=== PATIENT | male | born 1960 | race Caucasian/White ===

== ENCOUNTER 2021-08-06 07:27 | Emergency (ER) | payer MEDICAID, SELFPAY ==
--- NOTE | ~2021-08-06 | XR_ITS ---
EXAMINATION: XR KNEE, LEFT CLINICAL INFORMATION: Injury COMPARISON: None TECHNIQUE: Four views of the left knee. FINDINGS: A small joint effusion is present. Mild degenerative changes are present with narrowing in the medial compartment. No acute fractures are seen. No abnormal soft tissue calcification. XR/XR knee LT 4V IMPRESSION: Small knee joint effusion and mild narrowing of the medial compartment.
[2021-08-06 07:40] VITALS: BP 161/92; PULSE 93; RESP 16; TEMP 36.6; O2SAT 98; BMI 26.9
--- NOTE | 2021-08-06 08:11 | ED.GENADULT ---
HPI - General Adult General Chief complaint: Extremity Injury, Lower Stated complaint: left knee pain Time Seen by Provider: 08/06/21 08:11 Source: patient Mode of arrival: ambulatory Limitations: no limitations History of Present Illness HPI narrative: Patient is a 60 year old male presenting to the emergency department today with left knee pain. Patient states that he stepped down and twisted his left knee after missing a step yesterday. Patient denies hitting his head with the incident or any loss of consciousness. Patient denies any dizziness, lightheadedness, abdominal pain, nausea, vomiting, fever, chills, blurry vision, double vision, loss of vision, chest pain, difficulty breathing, shortness of breath, back pain, night sweats, pain with urination, increased urinary frequency, increased urinary urgency, blood in his urine or stool, syncope or a near syncopal episode, bowel incontinence, bladder incontinence, bowel retention, bladder retention, or any other complaints at this time. Onset (ago): day(s) (1) Location: left and lower extremity Radiation: non-radiation Severity: mild Severity scale (1-10): 1 Quality: dull Pain Consistency: constant Relieving factors: none Exacerbating factors: none Associated symptoms: denies other symptoms Treatments prior to arrival: none Related Data Allergies Allergy/AdvReac Type Severity Reaction Status Date / Time No Known Allergies Allergy Unverified 10/25/19 16:43 Review of Systems Constitutional: Constitutional: Reports no additional constitutional complaints, Denies chills, Denies fever(s) and Denies night sweats Eyes: Eyes: Reports no additional eye complaints, Denies blurry vision, Denies change in vision, Denies diplopia, Denies eye discharge, Denies loss of vision and Denies eye pain ENT: Denies dizziness Cardiovascular: Cardiovascular: Reports no additional cardiovascular complaints, Denies chest pain, Denies lightheadedness, Denies Loss of Consciousness and Denies dyspnea Respiratory: Respiratory: Reports no additional respiratory complaints and Denies dyspnea Gastrointestinal: Gastrointestinal: Reports no additional gastrointestinal complaints, Denies abdominal pain, Denies melena, Denies hematochezia, Denies change in bowel habits and Denies change in stool character Genitourinary: Genitourinary: Reports no additional male genitourinary complaints, Denies hematuria, Denies oliguria, Denies difficulty urinating, Denies dysuria, Denies urinary frequency, Denies urinary hesitancy, Denies urinary incontinence and Denies urinary urgency Musculoskeletal: Musculoskeletal: Reports no additional musculoskeletal complaints, Denies numbness and Denies tingling Comments: left knee pain Neurologic: Denies dizziness, Denies loss of vision, Denies numbness and Denies tingling Psychiatric: Psychiatric: Reports no additional psychiatric complaints Endocrine: Endocrine: Reports no additional endocrine complaints Hematologic/Lymphatic: Hematologic/Lymphatic: Reports no additional hematologic/lymphatic complaints Allergic/Immunologic: Allergic/Immunologic: Reports no additional allergic/immunologic complaints [facility] Past Medical History Attestation statement: The following information was validated with the patient. Source: old records reviewed Social History Social History Advance Directives: No Advance Directives Information Provided: Yes Physical Exam ED Vital Signs: Vital Signs - 24 hr 08/06/21 07:40 Temperature 97.8 F Pulse Rate 93 Respiratory Rate 16 Blood Pressure 161/92 H Pulse Oximetry 98 Oxygen Delivery Method Room Air BMI result Body Mass Index 26.9 Const General: cooperative, no acute distress, alert and awake Nutritional Appearance: well nourished Orientation/consciousness: patient oriented x3 Limitations: no limitations HENMT Head: Yes normal to inspection and Yes atraumatic Ears: hearing grossly normal bilaterally and external ears normal General nose exam: Normal external nose present, no nasal discharge noted and no epistaxis Face and sinus: Yes normal facial exam, No abrasion and No laceration Mouth: Normal oral and palatal mucosa present, no drooling and no muffled voice Eyes General: appearance normal, both eyes and all related structures Periorbital: periorbital findings normal Eyelids: Yes eyelids normal Conjunctivae: conjunctivae normal Pupils: Equal, round and reactive pupils present EOM: EOMs intact bilaterally Neck Neck: Yes normal visual inspection, Yes full ROM and Yes no lymphadenopathy Chest Chest palpation & inspection: normal inspection of the chest Resp Effort & Inspection: normal respiratory effort and able to speak in complete sentences Auscultation: clear to auscultation bilaterally Cardio Rate: regular rate Rhythm: regular rhythm GI Inspection: Yes normal to inspection Neuro General: patient oriented x3 and moves all extremities Cranial nerves: Yes Equal, round and reactive pupils present Cognition (Neuro): normal cognition Motor exam (neuro): 5/5 motor strength present throughout Sensory Exam: Normal double simultaneous stimulation for sensation Coordination: [id number] test normal Extrem General: Yes normal to inspection, Yes full ROM and Yes capillary refill normal Psych Appearance: grossly normal Mental Status: mental status grossly normal Affect: normal affect Attitude: cooperative Thought process: Normal thought process present Thought content: Normal thought content present Insight: Good insight present (Psych) Procedures Orthopedic Splinting/Casting Injury #1: Side: left Lower Extremity Injury Location: knee Lower Extremity Immobilizer: knee immobilizer Other Orthopedic Equipment: crutches Medical Decision Making MDM Narrative Medical decision making narrative: Patient is a 60 year old male presenting to the emergency department today with left knee pain. Patient's physical exam was unremarkable. Patient's left knee x-ray showed a small knee join effusion and mild narrowing of the medial compartment but no acute fractures. I explained my physical exam findings as well as all test results to the patient. I answered all questions asked by the patient. Patient's knee was placed in an immobilizer and he was given crutches with crutch instructions. Patient's PMS was in tact prior to and after splint placement. I stressed the importance of the patient taking his medication as prescribed. I stressed the importance of the patient following up with his primary care provider and an orthopedic provider. I stressed the importance of the patient returning to the emergency department immediately if his symptoms were to worsen or if he were to develop any dizziness, shortness of breath, difficulty breathing, chest pain, blurry vision, loss of vision, nausea, vomiting, abdominal pain, fever, chills, back pain, or any other complaints. Patient verbalized agreement and understanding with this treatment plan and discharge. Differential Diagnosis Differential Diagnosis: Left knee pain, internal left knee injury Medical Records Medical records reviewed: Yes I reviewed the patient's medical records. Imaging Data Left knee x-ray: Attestation: I personally reviewed and interpreted this imaging study as follows: My impression: No acute ana process. Radiologist's impression: EXAMINATION: XR KNEE, LEFT CLINICAL INFORMATION: Injury? COMPARISON: None? TECHNIQUE: Four views of the left knee. FINDINGS: A small joint effusion is present. Mild degenerative changes are present with narrowing in the medial compartment. No acute fractures are seen.? No abnormal soft tissue calcification.? XR/XR knee LT 4V IMPRESSION: Small knee joint effusion and mild narrowing of the medial compartment. Dictated By: Parminder Jackson MD Signed By: Electronically signed by Parminder Jackson MD 08/06/21 2229 Discharge Plan Discharge Clinical Impression: Acute internal derangement of knee Patient Disposition: Home, Self-Care Instructions: ACL Injury (ED) Additional Instructions: Follow up with your primary care provider and an orthopedic provider. Return to the emergency department immediately if your symptoms worsen or if you develop any dizziness, shortness of breath, difficulty breathing, chest pain, blurry vision, loss of vision, nausea, vomiting, abdominal pain, fever, chills, back pain, or any other complaints. [place] [facility] [place] [facility] [place]Provider Group] (Call to establish and follow up with an orthopedic provider. ) Hali Cabezas MD [Primary Care Provider] - (Follow up with your primary care provider. ) Stand Alone Forms: Work/School Release Print Language: Stateless
== END 2021-08-06 10:02 | disposition home or self-care (01) ==
PROVIDERS: Emergency Provider Emergency Medicine; PCP Family Medicine
DX: M23.92 Unspecified internal derangement of left knee (principal); M25.462 Effusion, left knee; M25.562 Pain in left knee
CPT/HCPCS: 73564; 99283

== ENCOUNTER 2021-08-25 08:04 | Outpatient (REF) | payer MEDICAID, SELFPAY | END 2021-08-25 08:05 | disposition home or self-care (01) | LOC: HO.HOSX 08:04 | PROVIDERS: Visit Provider Physician Assistant | DX: Z13.89 Encounter for screening for other disorder (principal) ==

== ENCOUNTER 2021-12-31 10:25 | Emergency (ER) | payer MEDICAID, SELFPAY ==
--- NOTE | ~2021-12-31 | XR_ITS ---
EXAMINATION: XR CHEST, 2 VIEWS CLINICAL INFORMATION: Cough, chest pain COMPARISON: 05/03/2013 TECHNIQUE: PA and lateral views of the chest were obtained. FINDINGS: Fractured sternal wires are unchanged. Bilateral perihilar bronchial wall thickening is suspected. No consolidation, pneumothorax, or pleural effusion. Cardiac and mediastinal contours are normal. Pulmonary vasculature is unremarkable. Trachea is midline. Osseous structures are unremarkable. XR/XR chest 2V IMPRESSION: Bronchial wall thickening can be seen with a small airways process such as asthma or atypical/viral infection. No focal consolidation.
[2021-12-31 10:36] VITALS: BP 141/78; PULSE 84; RESP 18; TEMP 36.7; O2SAT 98; BMI 29.0
--- NOTE | 2021-12-31 10:40 | ECG_ITS ---
Test Reason : CHEST PAIN Blood Pressure : / mmHG Vent. Rate : 074 BPM Atrial Rate : 074 BPM P-R Int : 156 ms QRS Dur : 086 ms QT Int : 366 ms P-R-T Axes : 067 024 014 degrees QTc Int : 406 ms Sinus rhythm with marked sinus arrhythmia Right atrial enlargement Nonspecific ST abnormality Inferior leads Abnormal ECG No previous ECGs available Referred By: Samaria Carreno Electronically Signed By:TRICE SIMMONS MD
[2021-12-31 10:49] VITALS: BP 141/78; PULSE 84; RESP 18; TEMP 36.7; O2SAT 98
--- NOTE | 2021-12-31 10:50 | ED.CHESTPAIN ---
HPI - Chest Pain General Chief Complaint: Upper Respiratory Symptoms Stated Complaint: CP when coughing Time Seen by Provider: 12/31/21 10:40 Source: patient Mode of arrival: ambulatory Limitations: no limitations History of Present Illness HPI narrative: 61 yo male with history of HTN, HLD who is presenting to the ER for evaluation of upper sternal, nonradiating 2/10 chest pains that have been occurring with coughing. He states the pains are only when he is coughing and located in his upper chest. He states it is a slight ache. He denies any associated shortness of breath. He is not bringing up any phlegm when he coughs. He has been around his other family members who have been sick with similar symptoms. He denies any headache or body aches. No fever or chills. No nausea or vomiting. MD complaint: chest pain Onset (ago): day(s) (3) Timing of current episode: episodic Onset: other (Only when coughing) Pain location: substernal Pain radiation: none Severity: mild Pain scale (0-10): 2 Quality: aching Relieving factors: rest Exacerbating factors: other (Coughing) Treatment prior to arrival: none Risk Factors Coronary artery disease risk factors: hyperlipidemia and hypertension Thoracic aortic dissection risk factors: none Related Data Previous Rx's Medication Instructions Recorded benzonatate 100 mg capsule 100 mg PO TID PRN cough #20 caps 12/31/21 Allergies Allergy/AdvReac Type Severity Reaction Status Date / Time No Known Allergies Allergy Verified 12/31/21 10:36 Review of Systems Review of Systems: Constitutional: No Fever, No Chills ENT/Mouth: No sore throat, No Rhinorrhea Eyes: No Eye Pain, No Swelling, No Redness Cardiovascular: + Chest Pain, No SOB, No Orthopnea, No Edema Respiratory: + Cough, No Sputum, No Wheezing, No dyspnea Gastrointestinal: No Nausea, No Vomiting, No Diarrhea, No abdominal Pain Genitourinary: No Dysuria, No Urinary Frequency, No Hematuria Musculoskeletal: No joint pain, No Myalgias Skin: No Skin Lesions, No rash Neuro: No Weakness, No Numbness, No Dizziness, No Headache Heme/Lymph: No Bruising, No Lymphadenopathy PMFSH Past Medical History Medical History (Updated 12/31/21 @ 11:35 by SARAH Bermudez) High cholesterol Hypertension Social History Social History Alcohol intake: never Smoked in Last 30 Days: No Use of substances other than those prescribed or required for medical reasons: No Advance Directives: No Advance Directives Information Provided: Yes Physical Exam Vital Signs: Vital Signs: Last Vital Signs Temp 98.0 F 12/31/21 10:49 Pulse 84 12/31/21 10:49 Resp 18 12/31/21 10:49 BP 141/78 H 12/31/21 10:49 Pulse Ox 98 12/31/21 10:49 O2 Del Method 12/31/21 10:49 BMI result Body Mass Index 29.0 Appearance: Alert. Oriented X3. No acute distress. Eyes: Pupils equal, round and reactive to light. ENT: Pharynx normal. Neck: Normal inspection. Neck supple. CVS: Normal heart rate and rhythm. Pulses normal. Respiratory: No respiratory distress. Breath sounds normal. Abdomen: Soft and nontender. +BS x4 Skin: Skin warm and dry. Normal skin color. Normal skin turgor. No rashes. Extremities: No lower extremity edema. No calf tenderness Neuro: Oriented X 3. Grossly normal, nonfocal Course Course Course Narrative: 61 yo male with hx HTN, HLD presenting with chest pain associated with coughing only. +sick contacts. VSS on arrival and PE is unremarkable. Will check EKG, doubt cardiac etiology. will check CXR Reevaluation(s) Reevaluation #1: Flu negative, COVID negative. Chest x-ray with bronchial wall thickening that can be seen in small airway process such as asthma or atypical/viral infection. No focal consolidation. ? Most likely other viral URI w/ cough. Stable for d/c home with antitussive rx and supportive care. pt agrees with plan. MDM - Chest Pain Medical Records Data Attestation: I reviewed the patient's medical records. Lab Data Attestation: I reviewed the patient's lab results. Labs: Lab Results 12/31/21 12/31/21 Range/Units 10:50 10:50 COVID-19 (MICHELE) Negative (Negative) COVID-19 Clin Com See Note Influenza Type A (HARRIETT) Negative (Negative) Influenza Type B (HAR[facility]ETT) Negative (Negative) Influenza A & B Note See Note ECG Data ECG #1: Attestation: I personally reviewed and interpreted this ECG as follows: ECG interpretation date: 12/31/21 ECG interpretation time: 11:08 Prior ECG tracings: not available for review Interpretation: Normal sinus rhythm with marked sinus arrhythmia, ventricular rate 74 beats per minute, normal MS interval, normal QTC, no ST segment elevations or depressions. Discharge Plan Discharge Clinical Impression: Viral infection Patient Disposition: Home, Self-Care Instructions: Viral Syndrome (ED) Additional Instructions: You tested negative for COVID influenza. Your chest x-ray showed findings consistent with a probable viral infection. There was no pneumonia seen. Treatment is supportive care and [id number] cold and flu medications as needed for your symptoms. Take the prescribed cough medication as needed. Rest and stay hydrated. Follow-up with your doctor next week. If you develop new or worsening symptoms call 911 or come back to the ER for further evaluation. Prescriptions: New benzonatate 100 mg capsule 100 mg PO TID PRN (Reason: cough) Qty: 20 0RF Referrals: Hali Cabezas MD [Primary Care Provider] -
--- NOTE | 2021-12-31 11:00 | PC.NURSE ---
ekg performed, covid/flu swabs obtained, pt awaiting cxr
[2021-12-31 11:09] LABS: COVID-19 Test Negative (Negative); IDNOW Serial# 55D5AD1C
[2021-12-31 11:10] LABS: IDNOW Serial# 9DD0AD1C; Influenza A Negative (Negative); Influenza B2 Negative (Negative)
== END 2021-12-31 12:06 | disposition home or self-care (01) ==
PROVIDERS: Physician Assistant; Emergency Provider Emergency Medicine; PCP Family Medicine
DX: B34.9 Viral infection, unspecified (principal); R05.9 Cough, unspecified; Z20.822 Contact with and (suspected) exposure to COVID-19; I10 Essential (primary) hypertension; E78.5 Hyperlipidemia, unspecified
CPT/HCPCS: 71046; 87502; 87635; 93005; 99283; 99284

== ENCOUNTER 2022-12-24 17:47 | Outpatient (REF) | payer MEDICAID, SELFPAY ==
[2022-12-25 04:49] LABS: CT PCR NOT DETECTED (Not Detect.); NG PCR NOT DETECTED (Not Detect.)
== END 2022-12-24 17:48 | disposition home or self-care (01) ==
LOC: HO.HHCLNP 17:47
PROVIDERS: Visit Provider Registered Nurse
DX: R30.0 Dysuria (principal)
CPT/HCPCS: 0353U; 87086